=== PATIENT | male | born 1995 | race Caucasian/White ===

== ENCOUNTER 2024-12-08 12:27 | Inpatient (IN) | payer OTHER, SELFPAY ==
[2024-12-08] VITALS (16 sets, daily range): BP systolic 105–138; BP diastolic 73–89; BMI 38.0
--- NOTE | 2024-12-08 08:08 | ED.GENMED ---
History of Present Illness
General
Chief Complaint: Chest Pain
Time Seen by Provider: 12/08/24 08:04
History of Present Illness
History of Present Illness:
TIME OF INITIAL ENCOUNTER: 8:10 AM
HPI: The patient presents with left-sided chest discomfort. This woke him from sleep around 3 AM. Over the last few days he has had achiness and headache which has since resolved. He has no shortness of breath. He has no diaphoresis. He denies
any significant anxiety.
EXAM:
GENERAL: Well appearing in no distress
HEENT: Moist oral mucosa
CARDIOVASCULAR: No murmurs, normal heart rate, regular rhythm, No chest wall tenderness
PULMONARY: No respiratory distress, breath sounds are clear and equal
ABDOMEN: Soft with no peritoneal signs, no tenderness
NEUROLOGIC: Excellent strength all extremities, no coordination deficits
PSYCHIATRIC: Appropriate mental status, normal insight and judgement
EXTREMITIES: Nontender, no edema, moves all extremities equally
SKIN: No rash, no lesions
NUMBER AND COMPLEXITY OF PROBLEMS ADDRESSED AT THE ENCOUNTER
� Chronic conditions affecting care: Denies any significant past medical history
� Acute Exacerbation and/or Progression of Chronic Illness: This is an acute problem
� Differential Diagnosis includes: Chest wall pain, myocarditis, pericarditis, GERD, pneumothorax, PE unlikely as patient has no shortness of breath
AMOUNT AND/OR COMPLEXITY OF DATA TO BE REVIEWED AND ANALYZED
� I performed an independent evaluation of and my interpretation is:
EKG: Sinus 77, left axis deviation, no acute ST abnormality, no old to compare
CT:
X-rays: Chest x-ray by my read is unremarkable
Laboratory Studies: CBC and chemistries unremarkable, total bili minimally elevated at 1.4
Other: I reviewed echo report interpreted by Dr. Meléndez
� Review of other/old records: The patient was seen here in 2007 with cellulitis
� Clinical information was obtained by an independent historian: I spoke to grandfather at bedside
� Prescriptions/Medications Considered but not given: Considered analgesia however the patient declines as his symptoms have been improving spontaneously
� Further testing considered but not performed: Did not order D-dimer testing as the patient has no shortness of breath.
RISK OF COMPLICATIONS AND/OR MORBIDITY OR MORTALITY OF PATIENT MANAGEMENT
� Social determinants of health affecting care: Lives at home
� Discussion with other providers: Briefly discussed with Dr. Casillas however based on patient's medical record number should go to [facility] cardiology instead (had originally agreed with having echo obtained). Sent
message to Dr. Meléndez. Dr. Milton for admission at 10:39 AM.
� Escalation of care including admission/observation vs risk of discharge considered: The patient had a few days of flulike illness which has since resolved. He had abrupt onset left-sided chest discomfort which is overall
spontaneously improving.
ANY OTHER UPDATES:
9:15 AM: Patient's chest comfort persist described as a pressure on the left side but appears very comfortable. The symptoms have overall improved spontaneously compared to 6 hours ago.
10:20 AM: The patient has been in cardiac services getting echo. I spoke to Dr. Meléndez who recommends patient be admitted to the hospital to medicine service.
Phy Exam
Physical Exam
Physical Exam:
See HPI
Scores
Heart Score for Chest Pain Patients
STEMI patient?: No
History: Slightly or Non-Suspicious
ECG: Nonspecific Repolarization
Age: </= 45 years
Risk Factors: No Risk Factors
Troponin: >/= 3 x Normal Limit
Heart Score for Chest Pain Patients: 3
Heart Score Risk: 2.5% MACE over next 6 weeks
Course
Orders/Labs/Results
Orders:
Orders
12/08/24 07:52
Electrocardiogram (*1) Urgent
Reason for Study: Chest Pain
EKG- Treatment ONCE
12/08/24 08:17
CR Chest - 2 Views Urgent
Comment:
Reason For Exam: abrupt L CP
12/08/24 08:20
C-Reactive Protein Urgent
Comment: ADD
Complete Blood Count/With Diff Urgent
Comprehensive Metabolic Panel Urgent
Erythrocyte Sed Rate Urgent
Comment: ADD
NT-proBNP Urgent
Comment: ADD
Troponin I Urgent
12/08/24 09:07
Add On- LAB Urgent
Tests Added?: cRP
12/08/24 09:13
COVID-19 Antigen Urgent
Source: Nasal Swab
Influenza A+B Rapid Molecular Urgent
REKHA Source: Nasal Swab
Specimen Description:
12/08/24 09:14
Echo 2D MMode Color/Doppler Urgent
Reason for Study: recent viral illness, trop 5+, myocarditis?
12/08/24 09:19
Add On- LAB Urgent
Tests Added?: BNP
12/08/24 09:47
Add On- LAB Urgent
Tests Added?: ESR
12/08/24 11:32
Troponin I Routine
12/08/24 11:48
Admit/Transfer Patient As Directed
Co-Sign Provider:
Level of Care: Inpatient admission
Assign to:: IVU
Physician / Group: Dr Ramachandran
Diagnosis: Myocarditis
Reason for Hospitalization: pte p/w chest pain and elevated troponin
Expected length of stay greater than two midnights?: Yes
ELOS- Estimated Length of Stay in days: 2
I certify the patient meets the requirements for IP care: Yes
PRN Pain Medication Management As Directed
May give lesser potent ordered pain med per pt: Yes
preference::
Protocol:: Medication orders for pain may be administered in a
manner that supports deferring to patient preference
when the pt is:
- Requesting an ordered lesser potent pain medication.
Least to most potent pain medications are defined
as: acetaminophen < NSAID < tramadol < opioids
(morphine, oxycodone, hydromorphone).
- Requesting a lesser dose of the same medication IF
ORDERED.
- Requesting a less intrusive route of administration
if both routes are prescribed by the provider (PO <
IV).
12/08/24 11:49
Code Status As Directed
Resuscitation Status: Full Code
12/08/24 11:51
CARDIOLOGY CONSULT Routine
Consulting Provider: Peter Meléndez
Was physician already notified: Yes
Reason for consult: Chest pain and elevated troponin
Abnormal Lab Results
12/08/24
08:20
Absolute Monos (auto) 0.8 H 10^3/uL
(0.1-0.6)
Glucose 109 H mg/dl
(70-99)
Total Bilirubin 1.4 H mg/dl
(0.2-1.3)
Troponin I 5.380 H* ng/ml
C-Reactive Protein 54.80 H mg/L
(0.0-10.00)
12/08/24 08:20
12/08/24 08:20
Vital Signs
Initial and Last Documented VS:
Initial Vital Signs
Temp Pulse Resp BP Pulse Ox
36.7 C 97 18 120/85 99
12/08/24 07:49 12/08/24 07:49 12/08/24 07:49 12/08/24 07:49 12/08/24 07:49
Last Documented Vital Signs
Temp Pulse Resp BP Pulse Ox
36.7 C 89 16 118/79 100
12/08/24 07:49 12/08/24 11:00 12/08/24 11:00 12/08/24 11:00 12/08/24 11:00
*Critical Care Note
Total Time (30-74mins, 75-104mins- exclusive of procedures): Not Applicable
ED Attending Note
-
Portions of this chart may have been created with voice recognition software.� Occasional wrong word or��sound alike� substitutions may have occurred due to the inherent limitations of voice recognition software.
Discharge Plan
Departure
Patient Disposition: Admit
Date of Disposition: 12/08/24
Time of Disposition: 09:28
Presentation/result/management discussed w/ accepting MD/DO: Hospitalist
Discharge Problem:
Myocarditis
Prescriptions:
No Action
calcium carbonate [Tums] 200 mg calcium (500 mg) Tablet,Chewable
200 mg PO BIDPRN PRN (Reason: gerd)
Excedrin Extra Strength 250-250-65 mg Tablet
1 tab PO DAILYPRN PRN (Reason: headaches)
Referrals:
Porfirio Huerta MD [Family Provider] -
Interventions
Interventions:
*Risk Screen - Suicide Last Done: 12/08/24 07:49
*General Assessment Last Done: 12/08/24 07:49
*Neglect/Abuse Screening Last Done: 12/08/24 07:49
ED- Fall Risk Assessment Last Done: 12/08/24 08:18
*ED COVID-19 Vaccine History Last Done: 12/08/24 08:18
ED- Cardiac Assessment Last Done: 12/08/24 08:18
Discharge Date and Time
Print Language: PAKISTANI
[2024-12-08 08:44] LABS: ALT (SGPT) 42 U/L (0-50); AST (SGOT) 48 U/L (17-59); Albumin 4.1 g/dl (3.5-5.0); Alkaline Phosphatase 59 U/L (38-126); Blood Urea Nitrogen 13 mg/dl (9-20); Calcium 8.6 mg/dl (8.4-10.2); Carbon Dioxide 30 mmol/L (22-30); Chloride 100 mmol/L (98-107); Estimated Creatinine Clearance > 125 ml/min; Glucose 109 mg/dl (70-99); Potassium 4.4 mmol/L (3.5-5.1); Sodium 137 mmol/L (135-145); Total Bilirubin 1.4 mg/dl (0.2-1.3); Total Protein 6.5 g/dl (6.3-8.2); eGFR > 60.00
[2024-12-08 08:45] LABS: % Basophils 0.5 % (0-2); % Eosinophils 1.1 % (0-6); % Immature Granulocytes 0.3 % (0-0.5); % Lymphocytes 27.8 % (20.5-51.1); % Monocytes 9.1 % (1.7-9.3); % Neutrophils 61.2 % (42.2-75.2); Absolute Basophils 0.1 10^3/uL (0-0.2); Absolute Eosinophils 0.1 10^3/uL (0-0.7); Absolute Lymphocytes 2.6 10^3/uL (1.2-3.4); Absolute Monocytes 0.8 10^3/uL (0.1-0.6); Absolute Neutrophils 5.7 10^3/uL (1.4-6.5); Hematocrit 42.9 % (39.0-52.0); Hemoglobin 15.5 g/dL (13.0-18.0); Mean Corp Hgb Conc. 36.1 g/dL (33.0-37.0); Mean Corpuscular Hgb 30.1 pg (27.0-31.0); Mean Corpuscular Volume 83.3 fL (80.0-94.0); Mean Platelet Volume 9.4 fL (7.4-10.4); Nucleated Red Blood Cells % 0 % (-); Platelet Count 229 10^3/uL (130-400); Red Blood Cell Count 5.15 10^6/uL (4.70-6.10); White Blood Cell Count 9.3 10^3/uL (4.8-10.8)
[2024-12-08 09:39] LABS: COVID-19 Antigen Negative (Negative)
[2024-12-08 10:25] LABS: NT-proBNP 142 pg/ml
[2024-12-08 10:37] LABS: Erythrocyte Sed Rate 11 mm/hour (0-20)
--- NOTE | 2024-12-08 11:05 | CON.CAR ---
Addendum entered and electronically signed by Peter Meléndez MD 12/08/24 11:40:
I saw and examined the patient.
The EDITOR NEWS's note was reviewed and I agree with the note.
Comment:
29-year-old man with no significant past medical history who presents following a recent viral illness with uncomplicated myocarditis. He woke up with left-sided chest pain today and presented to the ER where troponin was found to be 5.38, CRP
54.8. ECG reveals normal sinus rhythm with no evidence of ischemia. Echocardiogram with normal biventricular function, no valvular disease, and no pericardial effusion. Suspect uncomplicated myocarditis due to recent viral illness. He will be
admitted to medicine and should be monitored on telemetry for at least 24 hours to ensure no arrhythmias. We will trend his troponin to peak. Depending on whether or not he has any ectopy, we can decide about beta-janna. He will need a cardiac
MRI as an outpatient. He should abstain from NSAIDs, heavy alcohol consumption, and exercise for the next 3-6 months.
Original Note:
Consultation
Consultation Request
Date/Time Consultation Requested: 12/08/2024 09:15
Date/Time Consultation Performed: 12/08/2024 10:40
Requesting Provider: Dr. Miguel
Performing Provider: OTIS Najera for Dr. Meléndez
Reason for Consultation: Abnormal troponin
Medical History
-
Chief Complaint: Chest pain
History of Present Illness:
Ahsan Alexandre is a 29-year-old male without a significant past medical nor surgical history who presented to the emergency department the chief complaint of chest pain. Yesterday, he felt well and in his usual state of health. Suddenly, at
approximately 3 AM today chest pain woke him from a sleep. He describes it as midsternal anterior chest discomfort. Initially, when he woke up he diaphoretic and 'off'. No other associated symptoms at present time. He was found to have an
abnormal troponin of 5.380. His EKG does not show any acute ischemia. He is a non-smoker and does not have a family history of premature CAD. Cardiology was consulted for abnormal troponin. Consideration is being made for acute myocarditis. He
reports a recent viral illness. He did not take his temperature so he is unsure if he was febrile. He does not take any regular prescriptive nor hlvk-rnf-ivkxsrb medications.
Past Medical History
Past Medical History: None
Past Surgical History: None
Social History
Tobacco: Non-Smoker
Alcohol: Occasional (Social)
Drug: None
Personal: Single
Employment: Employed ([employer])
Family History
Family History: Reviewed & Not Pertinent (Denies early CAD and SCD.)
Allergies / Home Medications
Allergy/AdvReac Type Severity Reaction Status Date / Time
No Known Allergies Allergy Unverified 12/08/24 07:49
�Medication �Instructions �Recorded �Confirmed �Type
nopsvam-wvvqibdnotnve-smniqgik 250 1 tab PO DAILYPRN PRN headaches 12/08/24 12/08/24 History
mg-250 mg-65 mg tablet (Excedrin
Extra Strength)
calcium carbonate (Tums) 200 mg PO BIDPRN PRN gerd 12/08/24 12/08/24 History
Review of Systems
-
History Source: Patient
All other systems: Negative unless noted
Constitutional: No Symptoms
EENT: No Symptoms
Respiratory: No Symptoms
Cardiac: Chest Pain (see HPI)
Abdomen/GI: No Symptoms
: No Symptoms
Musculoskeletal: No Symptoms
Skin: No Symptoms
Neurological: No Symptoms
Endocrine: No Symptoms
Hematologic/Lymphatic: No Symptoms
Physical Exam
Vital Signs
Temp Pulse Resp BP Pulse Ox
98.1 F 69 16 112/81 100
12/08/24 07:49 12/08/24 10:00 12/08/24 10:00 12/08/24 10:00 12/08/24 10:00
Lab Results
12/08/24 08:20
01/14/25 08:20
Troponin I 5.380 ng/ml H* 12/08/24 08:20
Kwo-J-Kuwflpuznui Pept 142 pg/ml 12/08/24 08:20
Physical Exam
General: Well Developed, Well Nourished, No Apparent Distress and Comfortable
HEENT: Normocephalic, Anicteric and Moist Mucous Membranes
Respiratory: Clear and Non Labored Respirations
Cardiac: S1/S2 and Regular Rhythm; Negative Peripheral Edema
Breast: Deferred by me
GI: Soft, Non Tender, Non Distended and Normal Bowel Sounds
Rectal: Deferred by Provider
Genito-urinary: No Costovertebral Tender
Musculoskeletal: No Clubbing, No Cyanosis and No Edema
Skin: Warm and Dry
Neuro: AO x 3
Hematologic/Lymphatic: No Lymphadenopathy
Psych: Calm
Impression / Plan
-
IMPRESSION/PLAN: 29M presented with chest pain and found to have an abnormal troponin, he has suspected myocarditis
Myocarditis
-EKG stable
-ESR stable at 11, CRP elevated at 54.80
-Symptomatic with midsternal anterior chest discomfort
-Echocardiogram today
-Follow telemetry closely to assess for arrhythmia
-Will arrange for cardiac MRI, this can be done as an outpatient if there are no significant arrhythmias
Abnormal troponin, in the setting of myocarditis
-Trend to peak
-EKG stable
Recent viral illness, negative for COVID-19 and influenza today
Data Reviewed
-
EKG: Report Reviewed by me
Labs: Labs Reviewed by me
--- NOTE | 2024-12-08 11:53 | HPS.HSE ---
Family Physician
-
Family Physician: Porfirio Huerta
Chief Complaint
-
chest pain
History of Present Illness
Patient 29 years old male with no significant past medical history came into the hospital with chest pain. Patient has been dealing with URI symptoms and subjective fevers and generalized malaise over the last few days since the weekend and his
symptoms have been subsiding but today he woke up around 3 AM with moderate to severe chest pain with no radiation but associated with some diaphoresis, no shortness of breath or syncope or near syncope or palpitations. Patient came to the hospital
after he was found to have an elevated troponin at 5.3 with a follow-up troponin of 8.9. EKG no ST-T changes. By the time of my evaluation chest pain-free. He had a stat echocardiogram and cardiology consulted in the ED. He was referred to
hospitalist for further evaluation.
Medical History
Past Medical History
Past Medical History: Reports None
Past Surgical History: Reports None
Social History
Tobacco: Non-smoker
Alcohol: Occasional
Drug: Marijuana (Occasional)
Family History
Family History: Other (Autoimmune diseases in his entire family including lupus, Ed's, etc.)
Allergies / Home Medications
Allergies reflects when Allergies were last updated in [facility].
Home Medications with original date entered in [facility]
Allergy/Medication List:
Allergies
Allergy/AdvReac Type Severity Reaction Status Date / Time
No Known Allergies Allergy Unverified 12/08/24 07:49
Home Medications
zkzwixx-pcxgjllcavhxp-nvkkcvrg 250 mg-250 mg-65 mg tablet (Excedrin Extra Strength) 1 tab PO DAILYPRN PRN headaches 12/08/24
calcium carbonate (Tums) 200 mg PO BIDPRN PRN gerd 12/08/24
Review of Systems
-
A 12 point ROS was completed and negative except as noted: Yes
Physical Exam
Vital Signs
Vital Signs
Temp Pulse Resp BP Pulse Ox
98.1 F 89 16 118/79 100
12/08/24 07:49 12/08/24 11:00 12/08/24 11:00 12/08/24 11:00 12/08/24 11:00
Physical exam:
General: Acutely ill
HEENT: Normocephalic, Atraumatic and Moist Mucous Membranes
Respiratory: Clear to Auscultation; Negative Wheezes, Rales or Rhonchi
Cardiac: Regular Rhythm and S1/S2
GI: Soft, Nontender and Nondistended
Musculoskeletal: No Clubbing, No Cyanosis and No Edema
Neuro: Awake, Alert and Oriented, no neuro-deficits
Psych: Calm
Physical Exam
General: Other
Laboratory Results
-
12/08/24 08:20
12/08/24 08:20
Laboratory Results
Total Bilirubin 1.4 mg/dl (0.2-1.3) H 12/08/24 08:20
AST 48 U/L (17-59) 12/08/24 08:20
ALT 42 U/L (0-50) 12/08/24 08:20
Alkaline Phosphatase 59 U/L (38-126) 12/08/24 08:20
Troponin I 5.380 ng/ml H* 12/08/24 08:20
Data Reviewed
-
Lab Data: Labs Reviewed by me
Impression/Plan
-
IMPRESSION:
Patient 29 years old male with no significant past medical history came into the hospital with recent viral illness followed by significant chest pain and found to have elevated troponin. Clinical picture consistent with acute myocarditis, probably
viral related. Also possibility of pericarditis but seems less likely. Also less likely ischemic heart disease. Patient at risk of cardiac complications, structural and electrical heart disease therefore will need to be admitted to the hospital
monitor very closely.
PLAN:
Chest pain and elevated troponin:
Likely myocarditis
Pain control
Supportive care
Cardiac monitoring
Stat echocardiogram pending
Continue trending cardiac enzymes until it peaks
Sed rate normal at 11
Cardiology consult-discussed with cardiology today and recommended IVU admission
Discussed with family at bedside
Recent viral illness:
No need for further workup at the moment
Negative influenza and COVID-19
Hyperglycemia:
Likely reactive
Check hemoglobin A1c in a.m.
Mild hyperbilirubinemia:
Likely Gilbert's syndrome
DVT prophylaxis:
SCDs
CODE STATUS:
Full code
Time spent 75 min
--- NOTE | 2024-12-08 21:11 | PTCARENOTE ---
Patient arrived into room 3354 from ER. Oriented to room and use of call hills. NSR on telemetry. Denies any chest pain or SOB at this time. Denies nausea or dizziness. EKG done. Skin intact. Mom and Aunt at bedside. Call hills and tray table within
reach.
[2024-12-09] VITALS (7 sets, daily range): BP systolic 114–129; BP diastolic 73–98; BMI 37.2
[2024-12-09] MEDS: TYLENOL 650 MG PO (04:33)
[2024-12-09 04:53] LABS: % Basophils 0.7 % (0-2); % Eosinophils 1.6 % (0-6); % Immature Granulocytes 0.5 % (0-0.5); % Lymphocytes 37.9 % (20.5-51.1); % Monocytes 8.9 % (1.7-9.3); % Neutrophils 50.4 % (42.2-75.2); Absolute Basophils 0.1 10^3/uL (0-0.2); Absolute Eosinophils 0.1 10^3/uL (0-0.7); Absolute Lymphocytes 3.2 10^3/uL (1.2-3.4); Absolute Monocytes 0.8 10^3/uL (0.1-0.6); Absolute Neutrophils 4.3 10^3/uL (1.4-6.5); Hematocrit 44.1 % (39.0-52.0); Hemoglobin 15.5 g/dL (13.0-18.0); Mean Corp Hgb Conc. 35.1 g/dL (33.0-37.0); Mean Corpuscular Hgb 29.8 pg (27.0-31.0); Mean Corpuscular Volume 84.8 fL (80.0-94.0); Mean Platelet Volume 9.2 fL (7.4-10.4); Nucleated Red Blood Cells % 0 % (-); Platelet Count 261 10^3/uL (130-400); Red Cell Dist. Width 12.2 % (11.5-14.5); White Blood Cell Count 8.5 10^3/uL (4.8-10.8)
[2024-12-09 05:21] LABS: Blood Urea Nitrogen 15 mg/dl (9-20); Carbon Dioxide 30 mmol/L (22-30); Chloride 103 mmol/L (98-107); Creatine Phosphokinase 204 U/L (55-170); Estimated Creatinine Clearance > 125 ml/min; Glucose 100 mg/dl (70-99); Potassium 4.9 mmol/L (3.5-5.1); Sodium 138 mmol/L (135-145); eGFR > 60.00
--- NOTE | 2024-12-09 09:35 | W.PN.CD ---
Today's Communication / Plan
-
Okay for discharge
Tylenol for pain
Cardiac MRI as an outpatient
Outpatient follow-up in 2-4 weeks
No vigorous exercise for the next 3-6 months
Impression / Plan
-
IMPRESSION/PLAN: 29M with no significant past medical history who presents following a viral illness, found to have presumed myocarditis.
Uncomplicated myocarditis
-Troponin peaked at 8. CRP elevated at 55. ECG unremarkable. Echocardiogram with normal BiV function and no valvular disease
-No arrhythmias on telemetry to suggest that this is a complicated myocarditis
-He will need a cardiac MRI, ideally in the next 2 weeks, as an outpatient for formal diagnosis of myocarditis
-He should abstain from NSAIDs, heavy alcohol consumption, and exercise for the next 3-6 months which I reviewed with him
-Outpatient follow-up in 2 to 4 weeks. Our office will call him to arrange this.
Subjective: Patient had a brief episode of chest pain overnight that resolved with Tylenol. He feels well this morning. Telemetry reveals no arrhythmia.
Physical Exam
Vital Signs/Labs
Vital Signs
Temp Pulse Resp BP Pulse Ox
97.7 F 86 18 123/88 95
12/09/24 04:10 12/09/24 09:00 12/09/24 06:30 12/09/24 08:00 12/09/24 05:35
12/08/24 12/09/24 12/10/24
06:59 06:59 06:59
Actual Weight 124.4 kg
12/09/24 04:42
12/09/24 04:42
12/08/24
08:20
Clw-L-Wddinugzmxx Pept 142
LAB Results
12/08/24 12/08/24 12/08/24
08:20 11:32 15:15
Troponin I 5.380 H* 8.940 H* D Cancelled
12/08/24 12/08/24
16:59 23:15
Troponin I 8.320 H* Cancelled
Physical Exam
Constitutional: No acute distress and Comfortable
Cardiovascular: Rhythm & rate is regular, Pedal edema is absent, S1S2 is normal and Murmur/rub/gallop absent
Respiratory: Respiratory effort normal and Lungs clear to auscul.
Neuro/Psych: AO x 3
Data Reviewed
-
Date of Service: December 09, 2024
Medical Decision Making: Reviewed Test Results, Independent Historian Assessment, Test Interpretation and Review of Case with other Provider
EKG: Tracing Personally Visualized and interpreted
Echo: Tracing Personally Visualized and interpreted
Labs: Labs Reviewed by me
--- NOTE | 2024-12-09 09:49 | W.PN.HOSP.TC ---
Today's Communication/Plan
-
Discharge planning today
Assessment / Plan
Assessment / Plan
Physical exam:
General: Well Developed, Well Nourished and No Apparent Distress
HEENT: Normocephalic, Atraumatic and Moist Mucous Membranes
Respiratory: Clear to Auscultation; Negative Wheezes, Rales or Rhonchi
Cardiac: Regular Rhythm and S1/S2
GI: Soft, Nontender and Nondistended
Musculoskeletal: No Clubbing, No Cyanosis and No Edema
Neuro: Awake, Alert and Oriented
Psych: Calm
A/P:
Chest pain and elevated troponin:
Likely myocarditis
Pain control
Supportive care
Cardiac monitoring
Stat echocardiogram pending
Continue trending cardiac enzymes until it peaks
Sed rate normal at 11
Cardiology consult-discussed with cardiology yesterday and recommended IVU admission
Discussed with cardiology today on 12/09 and he is cleared for discharge
Discussed with family at bedside
Recent viral illness:
No need for further workup at the moment
Negative influenza and COVID-19
Hyperglycemia:
Likely reactive
Check hemoglobin A1c as outpatient
Mild hyperbilirubinemia:
Likely Gilbert's syndrome
DVT prophylaxis:
SCDs
CODE STATUS:
Full code
Anticipated Discharge: Today
Subjective/Interval History
-
Date of Service: December 09, 2024
Had mild chest discomfort earlier this morning resolved with Tylenol. By the time of my evaluation chest pain-free and no shortness of breath
Objective Data
-
Labs:
Laboratory Results
12/09/24
04:42
WBC 8.5
Hgb 15.5
Hct 44.1
Plt Count 261
Sodium 138
Potassium 4.9
Chloride 103
Carbon Dioxide 30
BUN 15
Creatinine 0.8
Glucose 100 H
Calcium 9.0
Vital Signs:
Vital Signs
Temp Pulse Resp BP Pulse Ox
97.6 F 86 18 123/88 95
12/09/24 07:45 12/09/24 09:00 12/09/24 06:30 12/09/24 08:00 12/09/24 05:35
I&O
12/08/24 12/09/24 12/10/24
06:59 06:59 06:59
Output Total 900 / 900
Balance -900 / -900
--- NOTE | 2024-12-09 10:37 | PTCARENOTE ---
Assumed care of patient this morning. He denies any chest discomfort and has no other complaints. Cardiology is working on helping with scheduling patient's OP cardiac MRI. Assessment, care and VS as charted.
--- NOTE | 2024-12-09 11:42 | W.DCSUMMARY ---
Discharge Summary
Discharge Data
Date of Admission: 12/08/24
Date of Discharge: 12/09/24
-
Pending Results: No
Hospital Course
Patient 29 years old male with no significant past medical history came into the hospital with chest pain. Patient had URI symptoms prior to his presentation. He was found to have elevated troponin. Cardiology consulted. Troponin peaked to 8.9
and it trended down, and he was kept on cardiac monitoring. He had an echocardiogram and ejection fraction was noted to be 55 to 60% and no significant valvular disease and no pericardial effusion. He did well rest of the hospital stay. No
cardiac arrhythmias. Cardiology is planning to do an outpatient cardiac MRI. Otherwise, patient remains hemodynamically stable and chest pain-free by the time of discharge. Cardiology cleared him for discharge. He did improved sooner than
anticipated. He will be discharged in stable condition today.
Discharge duration: 32 minutes
Discharge Plan
-
Patient Disposition: Home (Routine Discharge)
Discharge Diagnosis/Procedures: Myocarditis. Chest pain. Elevated troponin due to myocarditis.
Diet: Low Cholesterol
Activity: No strenuous activity
Driving Restrictions: As prior to admission
Blood Work: Please PCP to order CBC, BMP in 1 week
Others Tests: Plan for cardiac MRI as outpatient scheduled by cardiology
Stand Alone Forms: Return to Work
Referrals:
Peter Meléndez MD [Active] - in two to four weeks
Porfirio Huerta MD [Family Provider] - in less than 1 week
Prescriptions:
Continued
calcium carbonate [Tums] 200 mg calcium (500 mg) Tablet,Chewable
200 mg PO BIDPRN PRN (Reason: gerd)
Discontinued
Excedrin Extra Strength 250-250-65 mg Tablet
1 tab PO DAILYPRN PRN (Reason: headaches)
Discharge Orders:
Discharge Patient (As Directed); Ordered 12/09/24
Ordered By: Jeremy Ramachandran
Discharge Date and Time
Discharge Date/Time: 12/09/24 13:32
Print Language: ROMANIAN
--- NOTE | 2024-12-09 12:09 | PTCARENOTE ---
Confirmed with and , patient can be discharged and patient will be called with an update about cardiac MRI.
--- NOTE | 2024-12-09 13:09 | CM ---
Attempted to meet with patient prior to d/c however nurse Potter states patient was already discharged to home today, with mother providing a ride. Nurse conveys that patient had no discharge needs.
== END 2024-12-09 13:32 | disposition home or self-care (01) | DRG 316 ==
LOC: IMU 12:27
PROVIDERS: Nurse Practitioner Gerontology; ADMITTING PHYSICIAN Hospitalist; CONSULT PHYSICIAN Student in an Organized Health Care Education/Training Program; EMERGENCY PHYSICIAN Emergency Medicine; FAMILY PHYSICIAN Internal Medicine
DX: I40.9 Acute myocarditis, unspecified (principal); Z11.52 Encounter for screening for COVID-19; E80.4 Gilbert syndrome; I51.7 Cardiomegaly
CPT/HCPCS: 71046; 80048; 80053; 82550; 83880; 84484; 85025; 85652; 86140; 87502; 87811; 93005; 93306; 99285

== ENCOUNTER → 2024-12-17 07:41 | Outpatient (REF) | payer OTHER, SELFPAY | LOC: MRI 07:41 | PROVIDERS: ATTENDING PHYSICIAN Student in an Organized Health Care Education/Training Program; FAMILY PHYSICIAN Internal Medicine | DX: I40.9 Acute myocarditis, unspecified (principal) | CPT/HCPCS: 75561; A9579 ==

== ENCOUNTER → 2025-03-29 10:00 | Outpatient (REF) | payer OTHER, SELFPAY | LOC: RCS 10:00 | PROVIDERS: ATTENDING PHYSICIAN Nurse Practitioner; FAMILY PHYSICIAN Internal Medicine | DX: I40.0 Infective myocarditis (principal) | CPT/HCPCS: 93306 ==

== ENCOUNTER → 2025-04-05 08:05 | Outpatient (REF) | payer OTHER, SELFPAY ==
--- NOTE | 2025-04-05 10:11 | CARDSERVDEF ---
Echocardiogram with Definity completed after protocol screening completed. Allergies verified.
Patent IV site: 22 g Angio inserted in LAC, 1st attempt
IV site flushed with 0.9% NaCl pre and post administration.
Diluted bolus method utilized to enhance visualization of ventricular ariza.
Total volume given: 5 mL
Patient tolerated all procedures well without complications.
Once study completed, IV removed and bandage applied after pressure held.
== END ==
LOC: RCS 08:05
PROVIDERS: ATTENDING PHYSICIAN Nurse Practitioner; FAMILY PHYSICIAN Internal Medicine
DX: I40.0 Infective myocarditis (principal)
CPT/HCPCS: 93017; 93225; 93226; 93350; Q9957